=== PATIENT | male | born 1960 | race Caucasian/White ===

== ENCOUNTER 2018-10-24 22:14 | Observation (INO) | payer BC ==
[2018-10-24] MEDS ORDERED: FAMOTIDINE 20 MG/50 ML IVPB 20 MG/50 ML MG IVPB ONE (22:26)
[2018-10-24] MEDS ORDERED: ASPIRIN 81 MG CHEWABLE TABLETS PO ONE (22:26)
--- NOTE | 2018-10-24 22:29 | PDOC ---
Documentation entered by Puja Morataya SCRIBE, acting as scribe for Juan Ang MD. Juan Ang MD: This documentation has been prepared by the Rafia giraldo Renju, SCRIBE, under my direction and personally reviewed by me in its entirety. I confirm that the documentation accurately reflects all work, treatment, procedures, and medical decision making performed by me. History of Present Illness - General Chief Complaint: Chest Pain Stated Complaint: CHEST PAIN History Source: Patient Exam Limitations: No Limitations - History of Present Illness Initial Comments: 10/24/18 22:32 History of Present Illness: The patient is a 58 year old male who presents to the emergency department for evaluation of chest pain. Patient reports non radiating substernal chest pain described as pleuritic and dull which occurred 2 hours ago after exercising. He endorses associated shortness of breath. Patient notes he had a stent placed 6 weeks ago at [facility] after being told by his PCP that he had a 95 % blockage. Patient reports taking three antacids and one 81mg aspirin today. The patient denies diaphoresis, headache, dizziness, fevers, chills, nausea, vomiting, diarrhea, and constipation. Denies dysuria, frequency, urgency, and hematuria. PAST MEDICAL HISTORY: Coronary Artery Disease, Hypertension, Hyperlipidemia PAST SURGICAL HISTORY: Stent 6 weeks ago. FAMILY HISTORY: no pertinent history SOCIAL HISTORY: Pt lives with family and is employed. MEDICATIONS: reviewed ALLERGIES: As per nursing notes Review of Systems: General: No fevers or chills, no weakness, no weight loss HEENT: No change in vision. No sore throat,. No ear pain Cardiovascular: (+)chest pain. (+)shortness of breath. Respiratory:No cough, or wheezing. Gastrointestinal: no nausea, vomiting, diarrhea or constipation, No rectal bleeding Genitourinary: No dysuria, hematuria, or frequency Musculoskeletal: No joint or muscle pain or swelling Neurologic: No headache, vertigo, dizziness or loss of consciousness Psychiatric: nor depression Skin: No rashes or easy bruising Endocrine: no increased thirst or abnormal weight change Allergic: no skin or latex allergy All other systems reviewed and normal Physical Exam: General: Well-nourished well-developed individual, no acute distress HEENT: Throat: Normal, tonsils normal, no erythema or exudate Neck: Supple, no meningeal signs, no lymphadenopathy Eyes:Pupils equal reactive and round, extraocular motion intact Chest: (+)Chest pain is slightly increased with deep respirations and palpation. Cardiac: S1-S2 normal, regular rate and rhythm, no murmurs rubs or gallops Respiratory: Lungs clear to auscultation bilateral Abdomen: Soft, nondistended, normal bowel sounds, nontender to palpation diffusely Extremities: Warm, dry, no cyanosis, clubbing, or edema Skin: No rashes Neuro: Alert and oriented x3, nonfocal exam, grossly intact, normal gait Psych: Normal mood and affect 10/24/18 23:13 Assessment and plan: This is a 58-year-old male who comes in complaining of substernal chest pain. Patient has history significant for hypertension high cholesterol and recently had a stent for a 95% blockage in his right coronary artery. Patient said the chest pain is different than when he had the blockage. We will obtain a workup including CBC, comp, chest x-ray, EKG, cardiac enzymes. Patient's heart score is 4 Patient's workup was unremarkable, Patient's chest x-ray showed no acute pathology Patient's EKG showed normal sinus rhythm no acute ST-T wave changes normal EKG Patient will be admitted to an obstetrical a bed overnight to rule him out given his risk factors and his heart score of 4 Past History - Past Medical History Allergies/Adverse Reactions: Allergies Allergy/AdvReac Type Severity Reaction Status Date / Time No Known Allergies Allergy Verified 10/24/18 22:15 Home Medications: Ambulatory Orders Aspirin Coated [Ecotrin -] 500 mg PO DAILY 10/24/18 Atorvastatin Ca [Lipitor] 80 mg PO DAILY 10/24/18 Metoprolol Succinate 25 mg PO DAILY 10/24/18 Ticagrelor [Brilinta] 90 mg PO DAILY 10/24/18 - Suicide/Smoking/Psychosocial Hx Smoking History: Unknown if ever smoked Have you smoked in the past 12 months: No Hx Alcohol Use: Yes (WEEKEND) Substance Use Type: None *Physical Exam - Vital Signs Last Vital Signs Temp Pulse Resp BP Pulse Ox 97.9 F 72 16 173/95 H 100 10/24/18 22:19 10/24/18 22:39 10/24/18 22:19 10/24/18 22:19 10/24/18 22:39 Heart Score/ECG Review - History History: Moderately suspicious - Electrocardiogram EKG: Normal - Age Age: 45-65 - Risk Factors Risk Factors Heart Score: Yes Hx Hypercholesterolemia, Yes Hx Hypertension, Yes Positive family hx of cardiac disease Based on the list above the patient has:: >/=3 risk factors or Hx atherosclerotic disease - Troponin Troponin: </= normal limit - Score Heart Score - Total: 4 ED Treatment Course - LABORATORY CBC & Chemistry Diagram: 10/24/18 22:20 10/24/18 22:20 - ADDITIONAL ORDERS Additional order review: Laboratory Results 10/24/18 10/24/18 10/24/18 22:20 22:20 22:20 Sodium 138 Potassium 4.0 Chloride 104 Carbon Dioxide 26 Anion Gap 8 BUN 18 Creatinine 0.9 Creat Clearance w eGFR 86.67 Random Glucose 98 Calcium 9.3 Total Bilirubin 0.8 AST 27 ALT 29 Alkaline Phosphatase 70 Creatine Kinase 68 Troponin I < 0.03 Total Protein 7.5 Albumin 4.4 10/24/18 22:20 RBC 4.53 MCV 94.9 MCHC 33.9 RDW 12.8 MPV 8.3 Neutrophils % 69.6 Lymphocytes % 21.5 Monocytes % 6.1 Eosinophils % 2.2 Basophils % 0.6 - Medications Given in the ED: ED Medications Discontinued Medications Generic Name Dose Route Start Last Admin Trade Name Freq PRN Reason Stop Dose Admin Aspirin 162 mg 10/24/18 22:26 10/24/18 22:33 Asa - PO 10/24/18 22:27 162 mg ONCE ONE Administration Famotidine/Sodium Chloride 20 mg in 50 mls @ 100 mls/hr 10/24/18 22:26 22:33 Pepcid 20 Mg Premixed Ivpb - IVPB 10/24/18 22:55 100 mls/hr ONCE ONE Administration Ketorolac Tromethamine 30 mg 10/24/18 23:11 10/24/18 23:12 Toradol Injection - IM 10/24/18 23:12 30 mg ONCE ONE Administration *DC/Admit/Observation/Transfer Diagnosis at time of Disposition: Chest pain Qualifiers: Chest pain type: unspecified Qualified Code(s): R07.9 - Chest pain, unspecified - Discharge Dispostion Condition at time of disposition: Stable Decision to Admit order: Yes - Referrals - Patient Instructions - Post Discharge Activity
[2018-10-24 22:30] LABS: BASO % 0.6 % (0-2.0); EOS % 2.2 % (0-4.5); HEMOGLOBIN 14.6 GM/dl (11.7-16.9); LYMPH % 21.5 % (8-40); MCH 32.2 pg (25.7-33.7); MCHC 33.9 g/dl (32.0-35.9); MEAN CELL VOLUME 94.9 fl (80-96); MEAN PLT VOLUME 8.3 fl (7.5-11.1); MONO % 6.1 % (3.8-10.2); NEUT % 69.6 % (42.8-82.8); PLATELET COUNT 285 K/MM3 (134-434); RBC 4.53 M/mm3 (4.00-5.60); RDW 12.8 % (11.9-15.9); WHITE BLOOD COUNT 11.5 K/mm3 (4.0-10.8)
[2018-10-24 22:46] LABS: ALBUMIN 4.4 g/dl (3.4-5.0); ALK PHOS 70 U/L (45-117); ANION GAP 8 MMOL/L (8-16); BILIRUBIN,TOTAL 0.8 mg/dl (0.2-1); BLOOD UREA NITROGEN 18 mg/dl (7-18); CALCIUM 9.3 mg/dl (8.5-10); CHLORIDE 104 mmol/L (98-107); CO2 26 mmol/L (21-32); CREATININE 0.9 mg/dl (0.55-1.3); GLUCOSE,RANDOM 98 mg/dl (74-106); SGOT/AST 27 U/L (15-37); SGPT/ALT 29 U/L (13-61); SODIUM 138 mmol/L (136-145); TOT PROT 7.5 g/dl (6.4-8.2)
[2018-10-24] MEDS ORDERED: KETOROLAC TROMETHAMINE 30 MG/1 ML VIAL ONE (23:08)
[2018-10-24] MEDS ORDERED: KETOROLAC TROMETHAMINE 30 MG/1 ML VIAL IM ONE (23:11)
[2018-10-25 00:40] VITALS: BMI 32.5
[2018-10-25 08:09] LABS: BASO % 0.3 % (0-2.0); EOS % 1.4 % (0-4.5); HEMATOCRIT 37.2 % (35.4-49); HEMOGLOBIN 12.8 GM/dl (11.7-16.9); LYMPH % 17.2 % (8-40); MCH 32.4 pg (25.7-33.7); MCHC 34.3 g/dl (32.0-35.9); MEAN CELL VOLUME 94.4 fl (80-96); MEAN PLT VOLUME 8.6 fl (7.5-11.1); MONO % 10.6 % (3.8-10.2); NEUT % 70.5 % (42.8-82.8); PLATELET COUNT 210 K/MM3 (134-434); RBC 3.94 M/mm3 (4.00-5.60); RDW 12.5 % (11.9-15.9); WHITE BLOOD COUNT 8.1 K/mm3 (4.0-10.8)
[2018-10-25 08:14] LABS: ANION GAP 12 MMOL/L (8-16); BLOOD UREA NITROGEN 16 mg/dl (7-18); CALCIUM 8.7 mg/dl (8.5-10); CHLORIDE 103 mmol/L (98-107); CO2 24 mmol/L (21-32); CREATININE 0.8 mg/dl (0.55-1.3); GLUCOSE,RANDOM 95 mg/dl (74-106); MAGNESIUM 1.9 mg/dL (1.8-2.4); PHOSPHOROUS 4.4 mg/dl (2.5-4.9); SODIUM 139 mmol/L (136-145)
--- NOTE | 2018-10-25 08:35 | CON.CARD ---
Consult Consult Specialty:: Cardiology Reason for Consultation:: chest pain - History of Present Illness History of Present Illness: The patient is a 58 year old male who presents to the emergency department for evaluation of chest pain. Patient reports non radiating substernal chest pain described as pleuritic and dull which occurred 2 hours ago after exercising. He endorses associated shortness of breath. Patient notes he had a stent placed 6 weeks ago at [facility] after being told by his PCP that he had a 95 % blockage. Patient reports taking three antacids and one 81mg aspirin today. The patient denies diaphoresis, headache, dizziness, fevers, chills, nausea, vomiting, diarrhea, and constipation. Denies dysuria, frequency, urgency, and hematuria. PAST MEDICAL HISTORY: Coronary Artery Disease, Hypertension, Hyperlipidemia PAST SURGICAL HISTORY: Stent 6 weeks ago. FAMILY HISTORY: no pertinent history SOCIAL HISTORY: Pt lives with family and is employed. Admits to smoking marijuana MEDICATIONS: reviewed ALLERGIES: As per nursing notes - History Source History Provided By: Patient, Medical Record - Past Medical History Cardio/Vascular: Yes: CAD, HTN, Hyperlipdemia - Alcohol/Substance Use Hx Alcohol Use: Yes (WEEKEND) - Smoking History Smoking history: Unknown if ever smoked Have you smoked in the past 12 months: No Home Medications - Allergies Allergies/Adverse Reactions: Allergies Allergy/AdvReac Type Severity Reaction Status Date / Time No Known Allergies Allergy Verified 10/24/18 22:15 - Home Medications Home Medications: Ambulatory Orders Aspirin Coated [Ecotrin -] 81 mg PO DAILY 10/24/18 Atorvastatin Ca [Lipitor] 80 mg PO DAILY 10/24/18 Metoprolol Succinate 25 mg PO DAILY 10/24/18 Ticagrelor [Brilinta] 90 mg PO BID 10/24/18 Review of Systems - Review of Systems Constitutional: reports: No Symptoms Eyes: reports: No Symptoms HENT: reports: No Symptoms Neck: reports: No Symptoms Cardiovascular: reports: Chest Pain Gastrointestinal: reports: No Symptoms Genitourinary: reports: No Symptoms Breasts: reports: No Symptoms Reported Musculoskeletal: reports: No Symptoms Integumentary: reports: No Symptoms Neurological: reports: No Symptoms Endocrine: reports: No Symptoms Hematology/Lymphatic: reports: No Symptoms Psychiatric: reports: No Symptoms Vital Signs: Vital Signs Temperature 98.6 F 10/25/18 07:00 Pulse Rate 66 10/25/18 07:00 Respiratory Rate 18 10/25/18 07:38 Blood Pressure 116/70 10/25/18 07:00 O2 Sat by Pulse Oximetry (%) 100 10/25/18 07:38 Constitutional: Yes: Well Nourished, No Distress, Calm Eyes: Yes: WNL, Conjunctiva Clear, EOM Intact HENT: Yes: WNL, Atraumatic, Normocephalic Neck: Yes: WNL, Supple, Trachea Midline Respiratory: Yes: WNL, Regular, CTA Bilaterally Gastrointestinal: Yes: WNL, Normal Bowel Sounds Renal/: Yes: WNL Cardiovascular: Yes: WNL, Regular Rate and Rhythm Heart Sounds: Yes: S1, S2 Musculoskeletal: Yes: WNL Extremities: Yes: WNL Integumentary: Yes: WNL Neurological: Yes: WNL, Alert, Oriented ...Motor Strength: WNL Psychiatric: Yes: WNL, Alert, Oriented - Other Data Labs, Other Data: CBC, BMP 10/25/18 06:55 10/25/18 06:55 Troponin, BNP 10/24/18 10/25/18 22:20 06:55 Troponin I < 0.03 < 0.03 Troponin, BNP 10/24/18 10/25/18 22:20 06:55 Troponin I < 0.03 < 0.03 Laboratory Tests 10/24/18 10/24/18 10/24/18 22:20 22:20 22:20 WBC 11.5 H RBC 4.53 Hgb 14.6 Hct 43.0 MCV 94.9 MCH 32.2 MCHC 33.9 RDW 12.8 Plt Count 285 MPV 8.3 Absolute Neuts (auto) 7.9 Neutrophils % 69.6 Lymphocytes % 21.5 Monocytes % 6.1 Eosinophils % 2.2 Basophils % 0.6 Sodium 138 Potassium 4.0 Chloride 104 Carbon Dioxide 26 Anion Gap 8 BUN 18 Creatinine 0.9 Creat Clearance w eGFR 86.67 Random Glucose 98 Calcium 9.3 Phosphorus Magnesium Total Bilirubin 0.8 AST 27 ALT 29 Alkaline Phosphatase 70 Creatine Kinase Troponin I < 0.03 Total Protein 7.5 Albumin 4.4 10/24/18 10/25/18 10/25/18 22:20 06:55 06:55 WBC 8.1 RBC 3.94 L Hgb 12.8 Hct 37.2 MCV 94.4 MCH 32.4 MCHC 34.3 RDW 12.5 Plt Count 210 D MPV 8.6 Absolute Neuts (auto) 5.7 Neutrophils % 70.5 Lymphocytes % 17.2 Monocytes % 10.6 H Eosinophils % 1.4 Basophils % 0.3 Sodium 139 Potassium 4.0 Chloride 103 Carbon Dioxide 24 Anion Gap 12 BUN 16 Creatinine 0.8 Creat Clearance w eGFR 99.29 Random Glucose 95 Calcium 8.7 Phosphorus 4.4 Magnesium 1.9 Total Bilirubin AST ALT Alkaline Phosphatase Creatine Kinase 68 Troponin I Total Protein Albumin 10/25/18 06:55 WBC RBC Hgb Hct MCV MCH MCHC RDW Plt Count MPV Absolute Neuts (auto) Neutrophils % Lymphocytes % Monocytes % Eosinophils % Basophils % Sodium Potassium Chloride Carbon Dioxide Anion Gap BUN Creatinine Creat Clearance w eGFR Random Glucose Calcium Phosphorus Magnesium Total Bilirubin AST ALT Alkaline Phosphatase Creatine Kinase Troponin I < 0.03 Total Protein Albumin Imaging - Results Chest X-ray: Image Reviewed (no i/e) EKG: Image Reviewed (sr rep abn) Problem List - Problems (1) Chest pain Code(s): R07.9 - CHEST PAIN, UNSPECIFIED Qualifiers: Chest pain type: unspecified Qualified Code(s): R07.9 - Chest pain, unspecified (2) Alcohol use with intoxication Code(s): F10.929 - ALCOHOL USE, UNSPECIFIED WITH INTOXICATION, UNSPECIFIED (3) At risk for elopement Code(s): Z91.89 - OT PERSONAL RISK FACTORS, NOT ELSEWHERE CLASSIFIED (4) Forehead contusion Code(s): S00.83XA - CONTUSION OF OTHER PART OF HEAD, INITIAL ENCOUNTER Assessment/Plan The patient is a 58 year old male who presents to the emergency department for evaluation of chest pain. Patient reports non radiating substernal chest pain described as pleuritic and dull which occurred 2 hours ago after exercising. He endorses associated shortness of breath. Patient notes he had a stent placed 6 weeks ago at [facility] after being told by his PCP that he had a 95 % blockage. Patient reports taking three antacids and one 81mg aspirin today. r/o mi neg refused stress test and eloped from hospital stated no cp or sob prior to elopement. echo showed possible rv dilation and mild rv hypokinesis -if patient returns to er r/o pe would be prudent. Called patient cell phone at 6 40 PM -on the record [phone] left voicemail message ([email or web address] enriquez) explaining that patient needs to retirn to hospital forw/u of possible PE. Explained condition could be life threatening
--- NOTE | 2018-10-25 09:02 | HP ---
CHIEF COMPLAINT: Chest pain Bar Host: Dr. Herson Reid, [facility] [phone] HISTORY OF PRESENT ILLNESS: 58 year-old male with a PMH significant for HTN, HLD, coronary artery disease s/ p stent to LAD x 6weeks ago on ticagrelor. Patient has been working out regularly since stent placement. Several hours after working out yesterday patient developed a "cramping" left-sided chest pain. The pain was constant and 7/10. Patient came to the ED where he was given toradol which gave him significant relief, pain 3/10. ER course was notable for: (1) (2) (3) Recent Travel: No PAST MEDICAL HISTORY Coronary artery disease PAST SURGICAL HISTORY: Coronary stent x 6 weeks (LAD 95% occluded) Social History: Smoking: Alcohol: Drugs: Family History: lives with family, employed Allergies No Known Allergies Allergy (Verified 10/24/18 22:15) HOME MEDICATIONS: Home Medications Medication Instructions Recorded Aspirin Coated [Ecotrin -] 200 mg PO DAILY 10/24/18 Atorvastatin Ca [Lipitor] 80 mg PO DAILY 10/24/18 Metoprolol Succinate 25 mg PO DAILY 10/24/18 Ticagrelor [Brilinta] 90 mg PO DAILY 10/24/18 REVIEW OF SYSTEMS CONSTITUTIONAL: Absent: fever, chills, diaphoresis, generalized weakness, malaise, loss of appetite, weight change HEENT: Absent: rhinorrhea, nasal congestion, throat pain, throat swelling, difficulty swallowing, mouth swelling, ear pain, eye pain, visual changes CARDIOVASCULAR: +left-sided chest pain Absent: chest pain, syncope, palpitations, irregular heart rate, lightheadedness , peripheral edema RESPIRATORY: Absent: cough, shortness of breath, dyspnea with exertion, orthopnea, wheezing, stridor, hemoptysis GASTROINTESTINAL: Absent: abdominal pain, abdominal distension, nausea, vomiting, diarrhea, constipation, melena, hematochezia GENITOURINARY: Absent: dysuria, frequency, urgency, hesitancy, hematuria, flank pain, genital pain MUSCULOSKELETAL: Absent: myalgia, arthralgia, joint swelling, back pain, neck pain SKIN: Absent: rash, itching, pallor HEMATOLOGIC/IMMUNOLOGIC: Absent: easy bleeding, easy bruising, lymphadenopathy, frequent infections ENDOCRINE: Absent: unexplained weight gain, unexplained weight loss, heat intolerance, cold intolerance NEUROLOGIC: Absent: headache, focal weakness or paresthesias, dizziness, unsteady gait, seizure, mental status changes, bladder or bowel incontinence PSYCHIATRIC: Absent: anxiety, depression, suicidal or homicidal ideation, hallucinations. PHYSICAL EXAMINATION Vital Signs - 24 hr 10/24/18 10/24/18 10/24/18 22:19 22:39 23:46 Temperature 97.9 F 99.6 F Pulse Rate 72 72 66 Respiratory 16 19 Rate Blood Pressure 173/95 H 144/80 O2 Sat by Pulse 100 100 98 Oximetry (%) 10/25/18 10/25/18 10/25/18 03:40 06:26 07:00 Temperature 98.6 F 98.6 F Pulse Rate 60 66 Respiratory 18 18 Rate Blood Pressure 115/71 116/70 O2 Sat by Pulse 100 99 Oximetry (%) 10/25/18 07:38 Temperature Pulse Rate Respiratory 18 Rate Blood Pressure O2 Sat by Pulse 100 Oximetry (%) GENERAL: Awake, alert, and fully oriented, in no acute distress. HEAD: Normal with no signs of trauma. EYES: Pupils equal, round and reactive to light, extraocular movements intact, sclera anicteric, conjunctiva clear. No lid lag. EARS, NOSE, THROAT: Ears normal, nares patent, oropharynx clear without exudates. Moist mucous membranes. NECK: Normal range of motion, supple without lymphadenopathy, JVD, or masses. LUNGS: Breath sounds equal, clear to auscultation bilaterally. No wheezes, and no crackles. No accessory muscle use. HEART: Regular rate and rhythm, normal S1 and S2 ABDOMEN: Soft, nontender, not distended, normoactive bowel sounds, no guarding, no rebound, no masses. No hepatomegaly or splenomegaly. MUSCULOSKELETAL: Normal range of motion at all joints. No bony deformities or tenderness. No CVA tenderness. UPPER EXTREMITIES: 2+ pulses, warm, well-perfused. No cyanosis. No clubbing. No peripheral edema. LOWER EXTREMITIES: 2+ pulses, warm, well-perfused. No calf tenderness. No peripheral edema. NEUROLOGICAL: Cranial nerves II-XII intact. Normal speech. Normal gait. Laboratory Results - last 24 hr 10/24/18 10/24/18 10/24/18 22:20 22:20 22:20 WBC 11.5 H RBC 4.53 Hgb 14.6 Hct 43.0 MCV 94.9 MCH 32.2 MCHC 33.9 RDW 12.8 Plt Count 285 MPV 8.3 Absolute Neuts (auto) 7.9 Neutrophils % 69.6 Lymphocytes % 21.5 Monocytes % 6.1 Eosinophils % 2.2 Basophils % 0.6 Sodium 138 Potassium 4.0 Chloride 104 Carbon Dioxide 26 Anion Gap 8 BUN 18 Creatinine 0.9 Creat Clearance w eGFR 86.67 Random Glucose 98 Calcium 9.3 Phosphorus Magnesium Total Bilirubin 0.8 AST 27 ALT 29 Alkaline Phosphatase 70 Creatine Kinase Troponin I < 0.03 Total Protein 7.5 Albumin 4.4 10/24/18 10/25/18 10/25/18 22:20 06:55 06:55 WBC 8.1 RBC 3.94 L Hgb 12.8 Hct 37.2 MCV 94.4 MCH 32.4 MCHC 34.3 RDW 12.5 Plt Count 210 D MPV 8.6 Absolute Neuts (auto) 5.7 Neutrophils % 70.5 Lymphocytes % 17.2 Monocytes % 10.6 H Eosinophils % 1.4 Basophils % 0.3 Sodium 139 Potassium 4.0 Chloride 103 Carbon Dioxide 24 Anion Gap 12 BUN 16 Creatinine 0.8 Creat Clearance w eGFR 99.29 Random Glucose 95 Calcium 8.7 Phosphorus 4.4 Magnesium 1.9 Total Bilirubin AST ALT Alkaline Phosphatase Creatine Kinase 68 Troponin I Total Protein Albumin 10/25/18 06:55 WBC RBC Hgb Hct MCV MCH MCHC RDW Plt Count MPV Absolute Neuts (auto) Neutrophils % Lymphocytes % Monocytes % Eosinophils % Basophils % Sodium Potassium Chloride Carbon Dioxide Anion Gap BUN Creatinine Creat Clearance w eGFR Random Glucose Calcium Phosphorus Magnesium Total Bilirubin AST ALT Alkaline Phosphatase Creatine Kinase Troponin I < 0.03 Total Protein Albumin ASSESSMENT/PLAN: 58 year-old male with a PMH significant for HTN, HLD, and CAD s/p stent to LAD x 6 weeks ago. Placed on observation for chest pain. Chest pain Coronary artery disease s/p stent to LAD --troponins neg x 3 --echo pending --continue Brilinta BID, ASA, metoprolol, atorvastatin --discussed with patient's butting saw operator Dr. Reid; he will follow up with patient in office, does not need inpatient stress FEN Fluids: PO intake adequate Electrolytes: replete as indicated Nutrition: low sodium DVT prophylaxis: on ASA, ticagrelor Dispo: continues to require observation. Full code. Visit type - Emergency Visit Emergency Visit: Yes ED Registration Date: 10/24/18 Care time: The patient presented to the Emergency Department on the above date and was hospitalized for further evaluation of their emergent condition. - New Patient This patient is new to me today: Yes Date on this admission: 10/25/18 - Critical Care Critical Care patient: No
[2018-10-25] MEDS ORDERED: PT OWN MED DRAWER 7, Y5N ONE (09:10)
--- NOTE | 2018-10-25 09:55 | EKG ---
Test Reason : Blood Pressure : / mmHG Vent. Rate : 068 BPM Atrial Rate : 068 BPM P-R Int : 174 ms QRS Dur : 104 ms QT Int : 400 ms P-R-T Axes : 060 019 020 degrees QTc Int : 425 ms NORMAL SINUS RHYTHM NORMAL ECG WHEN COMPARED WITH ECG OF 05-MAY-2011 09:03, NO SIGNIFICANT CHANGE WAS FOUND Confirmed by DANIELLA CHÁVEZ MD ([id number]) on 10/25/2018 9:54:56 AM Referred By: DR MALONEY Confirmed By:DANIELLA CHÁVEZ MD
[2018-10-25] MEDS ORDERED: NITROGLYCERIN SUBLINGUAL 1/150 0.4 MG TAB ONE (09:58)
[2018-10-25] MEDS ORDERED: TICAGRELOR 90 MG TABLET PO SCH (10:00)
[2018-10-25] MEDS ORDERED: metoPROLOL SUCCINATE 25 MG TAB.SR.24H (FP) PO SCH (10:00)
[2018-10-25] MEDS: NITROGLYCERIN SUBLINGUAL 1/150 0.4 MG TAB SL PRN ×2 (10:00→10:05)
[2018-10-25] MEDS ORDERED: TICAGRELOR 60 MG TABLET PO SCH ×2 (10:00)
[2018-10-25] MEDS ORDERED: ASPIRIN 81 MG CHEWABLE TABLETS PO SCH (10:00)
--- NOTE | 2018-10-25 10:33 | EKG ---
Test Reason : Blood Pressure : / mmHG Vent. Rate : 070 BPM Atrial Rate : 070 BPM P-R Int : 172 ms QRS Dur : 108 ms QT Int : 392 ms P-R-T Axes : 031 011 -02 degrees QTc Int : 423 ms NORMAL SINUS RHYTHM NORMAL ECG WHEN COMPARED WITH ECG OF 24-OCT-2018 22:15, NO SIGNIFICANT CHANGE WAS FOUND Confirmed by DANIELLA CHÁVEZ MD ([id number]) on 10/25/2018 10:32:46 AM Referred By: DR CHOWDHURY Confirmed By:DANIELLA CHÁVEZ MD
[2018-10-25 14:55] VITALS: BP 124/75; PULSE 76; TEMP 98.9
--- NOTE | 2018-10-25 15:37 | EKG ---
Test Reason : Blood Pressure : / mmHG Vent. Rate : 072 BPM Atrial Rate : 072 BPM P-R Int : 170 ms QRS Dur : 106 ms QT Int : 382 ms P-R-T Axes : 037 003 009 degrees QTc Int : 418 ms NORMAL SINUS RHYTHM tds motion artifacts. repolarization abnormalities r/o ischemia ABNORMAL ECG Confirmed by DANIELLA CHÁVEZ MD ([id number]) on 10/25/2018 3:37:08 PM Referred By: FRANCES MYRICK Confirmed By:DANIELLA CHÁVEZ MD
--- NOTE | 2018-10-25 18:09 | DS ---
Physical Exam: HOSPITAL COURSE: Date of Admission:10/24/18 Date of Discharge: 10/25/18 Pre hospital course 58 year-old male with a PMH significant for HTN, HLD, coronary artery disease s/ p stent to LAD x 6weeks ago on ticagrelor. Patient has been working out regularly since stent placement. Several hours after working out yesterday patient developed a "cramping" left-sided chest pain. The pain was constant and 7/10. Patient came to the ED where he was given toradol which gave him significant relief, pain 3/10. Hospital course 58 year-old male with a PMH significant for HTN, HLD, and CAD s/p stent to LAD x 6 weeks ago. Placed on observation for chest pain. Chest pain Coronary artery disease s/p stent to LAD --troponins neg x 3 --10/25 echo: LV normal; RV mildly reduced; mild MR --seen and evaluated by Dr. Martinez who recommended echo and stress; patient declined stress; went to [facility] for echo and returned to [place] ; Dr. Martinez arrived in the afternoon and spoke with patient; shortly thereafter patient left the floor, eloped --earlier in day this provider spoke to patient's laborer general, Dr. Herson Reid ([phone]); he will follow up with patient in office, he did not think a stress test was indicated; faxed Dr. Reid copy of echo report --continued Brilinta BID, ASA, metoprolol, atorvastatin Minutes to complete discharge: 35 Discharge Summary Reason For Visit: CHEST PAIN Current Active Problems Chest pain (Acute) Condition: Stable - Instructions Disposition: ELOPED - Home Medications Comprehensive Discharge Medication List: Ambulatory Orders Aspirin Coated [Ecotrin -] 81 mg PO DAILY 10/24/18 Atorvastatin Ca [Lipitor] 80 mg PO DAILY 10/24/18 Metoprolol Succinate 25 mg PO DAILY 10/24/18 Ticagrelor [Brilinta] 90 mg PO BID 10/24/18 This patient is new to me today: No Emergency Visit: Yes ED Registration Date: 10/24/18 Care time: The patient presented to the Emergency Department on the above date and was hospitalized for further evaluation of their emergent condition. Critical Care patient: No - Discharge Referral Referred to [facility] No
--- NOTE | 2018-10-25 18:30 | ECHO ---
Version: 1 Name: RADHIKA ALEXIS Exam: Adult Echocardiogram Study Date: 10/25/2018, 4:08 PM Age: 58 Years MMode/2D Measurements & Calculations IVSd: 1.00 cm LVIDs: 3.4 cm LVIDd: 4.7 cm LVPWd: 0.89 cm LVOT diam: 2.04 cm Ao root diam: 3.7 cm LA dimension: 3.7 cm Doppler Measurements & Calculations MV E max micky: 84.0 cm/sec MV A max micky: 72.6 cm/sec MV E/A: 1.16 Ao max P.5 mmHg ALBERTO(I,D): 1.40 cm Ao mean P.8 mmHg LV V1 mean: 50.2 cm/sec Ao V2 max: 177.0 cm/sec LV V1 mean P.12 mmHg Procedure A two-dimensional transthoracic echocardiogram with color flow and Doppler was performed. The study was technically difficult with many images being suboptimal in quality. Left Ventricle The left ventricular size, thickness and function are normal. The left ventricular ejection fraction is normal. Regional wall motion abnormalities cannot be excluded due to limited visualization. Septal m otion is consistent with conduction abnormality. Right Ventricle The right ventricle is not well visualized. The right ventricle is mildly dilated. The right ventric ular systolic function is mildly reduced. Atria Normal left and right atrial size and function. Mitral Valve There is mild mitral valve thickening. There is no mitral valve stenosis. There is mild mitral regur gitation. Tricuspid Valve The tricuspid valve is not well visualized, but is grossly normal. There is no tricuspid stenosis. T here was insufficient TR detected to calculate RV systolic pressure. Aortic Valve The aortic valve is not well visualized. No hemodynamically significant valvular aortic stenosis. No aortic regurgitation is present. Pulmonic Valve The pulmonic valve is not well visualized. Great Vessels The aortic root is normal size. Pericardium/Pleura There is no pericardial effusion. Summary Statements The study was technically difficult with many images being suboptimal in quality. The left ventricular size, thickness and function are normal The left ventricular ejection fraction is normal. Regional wall motion abnormalities cannot be excluded due to limited visualization. Septal motion is consistent with conduction abnormality. The right ventricle is not well visualized. The right ventricle is mildly dilated. The right ventricular systolic function is mildly reduced. There is mild mitral regurgitation. There was insufficient TR detected to calculate RV systolic pressure. MD Tray Martinez 10/25/2018, 5:29 PM Ordering Physician: Tabatha Myrick Referring Physician: TABATHA MYRICK Performed By: Siena Roberts
[2018-10-25] MEDS ORDERED: ATORVASTATIN CA 80 MG TABLET (FP) PO SCH (22:00)
== END 2018-10-25 18:02 | disposition left against medical advice (07) ==
LOC: FER 22:14 → FM/S 23:46
PROVIDERS: ADMIT Internal Medicine; ATTEND Nurse Practitioner Acute Care
PROC: 3E033GC Introduction of Other Therapeutic Substance into Peripheral Vein, Percutaneous Approach (ICD-10-PCS; principal; 2018-10-24)
PROC: 3E0233Z Introduction of Anti-inflammatory into Muscle, Percutaneous Approach (ICD-10-PCS; 2018-10-24)
DX: R07.9 Chest pain, unspecified (principal); F10.929 Alcohol use, unspecified with intoxication, unspecified; I10 Essential (primary) hypertension; E78.5 Hyperlipidemia, unspecified; I25.10 Atherosclerotic heart disease of native coronary artery without angina pectoris; Z91.89 Other specified personal risk factors, not elsewhere classified; Z79.82 Long term (current) use of aspirin; Z95.5 Presence of coronary angioplasty implant and graft
CPT/HCPCS: 36415; 71045-TC-FY; 80048; 80053; 82550; 83735; 84100; 84484; 85025; 93005; 93306-TC; 99283-25; G0378